=== PATIENT | male | born 1975 | race Two or more races ===

== ENCOUNTER 2024-05-23 08:00 | Day surgery (SDC) | payer MEDICAID, SELFPAY ==
[2024-05-22 15:15] VITALS: BMI 34.4
[2024-05-23] VITALS (9 sets, daily range): BP systolic 94–120; BP diastolic 27–83; PULSE 61–74; RESP 11–16; TEMP 36.6–36.7; O2SAT 93–97; BMI 34.4
[2024-05-23] MEDS: LIDOCAINE JELLY 2% (Urojet) 10 ML TUBE TOP (09:39)
[2024-05-23] MEDS: MIDAZOLAM INJ 1 MG/ML VIAL 2 ML (ASD USE ONLY) 2 MG IV (09:40)
[2024-05-23] MEDS: fentaNYL CIT INJ 50 mCg/ML AMP 2ML (ASD USE ONLY) IV (09:40)
[2024-05-23] MEDS: SIMETHICONE 40 MG/0.6 ML ORAL SYRINGE PO (09:40)
[2024-05-23] MEDS: bisacodyL 10 MG SUPP PR (10:48)
--- NOTE | 2024-05-23 10:48 | SUR.PHASEII ---
pt not able to pass flatus and suppository given.
--- NOTE | 2024-05-23 10:56 | SUR.PHASEII ---
Pt pass a large amount of flatus after suppository.
--- NOTE | 2024-05-23 10:57 | SUR.PHASEII ---
Pt reports feeling much better and abdomen is soft to touch
--- NOTE | 2024-05-23 11:11 | SUR.PHASEII ---
pt has mild but tolerable abdominal pain at d/c. pt and family were instructed that he has pass adequate flatus here and he should be walking when he gets home to pass more flatus. pt is encourage to go to the nearest ER of severe pain and n/v occurs while he is at home.
== END 2024-05-23 11:11 | disposition home or self-care (01) ==
PROVIDERS: PCP Internal Medicine Gastroenterology; Referring Provider Internal Medicine Gastroenterology; Visit Provider Internal Medicine Gastroenterology
PROC: 0DBE8ZX Excision of Large Intestine, Via Natural or Artificial Opening Endoscopic, Diagnostic (ICD-10-PCS; CPT 45380; principal; 2024-05-23 09:30)
DX: D12.3 Benign neoplasm of transverse colon (principal); K64.9 Unspecified hemorrhoids
CPT/HCPCS: 45380; A4649; J2250; J3010; A9270

== ENCOUNTER → 2024-07-09 | Outpatient (CLI) | payer MEDICAID, SELFPAY ==
--- NOTE | 2024-07-09 10:15 | XR_ITS ---
Exam: MRI knee without contrast, left complete Date and time of exam: July 09, 2024 1018 hours INDICATIONS: Medial knee pain osteoarthritis 3 months, instability knee swelling and pain Technique: Multiple axial, coronal, and sagittal sections on the knee have been obtained. T2-Weighted sagittal, fat-suppressed images, TR 3,500, TE 62, T2 weighted coronal fat-saturated images, TR 3,500, TE 62 Proton density sagittal sections, TR 1800, TE 31. T-1 weighted coronal images, TR 524, TE 13.0 Findings: Medial meniscus anterior horn intact. Medial meniscus, body oblique linear tear communicating inferior articular surface. Posterior horn medial meniscus horizontal linear tear communicating inferior articular surface near the inner margin. Lateral meniscus anterior horn is intact Lateral meniscus, body is intact Posterior horn lateral meniscus is intact Anterior cruciate ligament appears intact. Mild attenuation anterior cruciate ligament Posterior cruciate ligament appears intact. Knee effusion is small. Quadriceps and patellar tendons appear intact. There is no evidence of tendinosis. Inflammatory change or fracture of Hoffa's fat pad is not seen. Medial patellar facet demonstrates moderate thinning. Lateral patellar facet cartilage demonstrates moderate thinning. Trochlear cartilage demonstrates moderate thinning. Marrow signal adequate. Medial collateral ligament appears intact. No meniscocapsular separation is seen. Illiotibial band and fibular collateral ligament are intact. Biceps femoris tendons appear intact. Medial femoral condylar articular cartilage demonstrates moderate thinning. Lateral femoral condylar articular cartilage demonstratesmild thinning. Tibial plateau cartilage demonstrates moderate medial thinning. Impression: Tears of the body and posterior horn medial meniscus Cruciate ligaments are intact, mild attenuation anterior cruciate ligament
== END | disposition home or self-care (01) ==
PROVIDERS: PCP Nurse Practitioner Primary Care; Referring Provider Nurse Practitioner Primary Care; Visit Provider Nurse Practitioner Primary Care
DX: S83.242A Other tear of medial meniscus, current injury, left knee, initial encounter (principal); X58.XXXA Exposure to other specified factors, initial encounter; M25.862 Other specified joint disorders, left knee
CPT/HCPCS: 73721

== ENCOUNTER → 2024-07-17 | Outpatient (BNVA) | payer MEDICAID, SELFPAY | END | disposition home or self-care (01) | PROVIDERS: PCP Nurse Practitioner Primary Care; Referring Provider Nurse Practitioner Primary Care; Visit Provider Nurse Practitioner Primary Care | DX: S83.242A Other tear of medial meniscus, current injury, left knee, initial encounter (principal); D12.6 Benign neoplasm of colon, unspecified | CPT/HCPCS: 99212; G0463 ==

== ENCOUNTER 2024-09-06 08:40 | Day surgery (SDC) | payer MEDICAID, SELFPAY ==
[2024-08-15 08:27] VITALS: BMI 31.4
--- NOTE | 2024-09-05 11:30 | EKG_ITS ---
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
[2024-09-05 11:37] VITALS: BMI 35.1
[2024-09-05 13:17] LABS: Basophils # (Auto) 0.1 Thou/mm3 (0.0-0.2); Basophils % (Auto) 1 % (0-2.5); Eosinophils # (Auto) 0.2 Thou/mm3 (0.0-0.5); Eosinophils % (Auto) 3 % (0-10); Hematocrit 42.7 % (41.0-53.0); Hemoglobin 14.7 g/dL (13.5-16.0); Immature Granulocytes % (Auto) 1 % (0-0); Immature Granulocytes Auto 0.04 Thou/mm3 (0.00-0.00); Lymphocytes # (Auto) 2.3 Thou/mm3 (1.0-4.8); Lymphocytes % (Auto) 33 % (10-50); Mean Corpuscular HGB Conc 34.4 g/dl (31.0-37.0); Mean Corpuscular Hemoglobin 30.6 pg (25.0-35.0); Mean Corpuscular Volume 89 fL (80-100); Monocytes # (Auto) 0.7 Thou/mm3 (0.0-0.8); Monocytes % (Auto) 10 % (0-12); Neutrophils # (Auto) 3.6 Thou/mm3 (1.8-7.7); Neutrophils % (Auto) 51 % (37-80); Nucleated Red Blood Cell % 0 /100 WBC (0); Platelet Count 220 Thou/mm3 (140-440); RDW Standard Deviation 42.5 fL (35.1-43.9)
[2024-09-05 13:27] LABS: Anion Gap 7 (7-16); BUN/Creatinine Ratio 18 Ratio (12-20); Blood Urea Nitrogen 18 mg/dL (9-23); Calcium 9.5 mg/dL (8.3-10.6); Carbon Dioxide 26.4 mMol/L (20.0-31.0); Chloride 108 mMol/L (98-107); Estimated Creatinine Clearance 97.1 mL/min (>60); Glucose 100 mg/dL (74-106); Osmolality,Calculated 283 (275-295); Potassium 4.2 mMol/L (3.4-5.1); Sodium 141 mMol/L (136-145); eGFR > 60 See Note
[2024-09-05 13:32] LABS: Partial Thromboplastin Time 27.6 Seconds (22.0-36.0); Prothrombin Time 10.8 Seconds (9.0-12.2)
[2024-09-06] VITALS (8 sets, daily range): BP systolic 118–134; BP diastolic 79–101; PULSE 67–99; RESP 12–21; TEMP 36.1–36.7; O2SAT 94–97; BMI 35.1
[2024-09-06] MEDS: RINGERS LACTATED 1000 ML 1,000 ML 20 ML IV (09:34)
--- NOTE | 2024-09-06 10:48 | ESOP_ITS ---
Date of Procedure 09/06/24 Pre Op Diagnosis 1. Torn medial meniscus left knee joint 2 torn lateral meniscus 3 degenerative joint disease changes 4 synovitis with medial plica Post Op Diagnosis Same Procedure 1. Partial medial meniscectomy 2 partial lateral meniscectomy 3 chondroplasty 4 partial synovectomy including excision plica Findings Refer dictation Procedure Description The patient was given general endotracheal anesthesia. Once satisfactory anesthesia was achieved, tourniquet was placed on left upper thigh. Following that the part was thoroughly prepped and draped. After using Esmarch the tourniquet pressure was raised to 350 mmHg. A skin incision was made proximal to lateral tibial plateau and arthroscope was introduced in the usual fashion. Another a skin incision was made in suprapatellar pouch area and outlet was established. The findings were noted as below. In suprapatellar pouch area significant synovial tissue inflammation was present. Medial plica was present as well. 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 The anterior femoral condyle showed grade 3 chondromalacia. Soft tissue impingement was present. The patellar tracking was checked and found to be good. The medial compartment showed grade 3 chondromalacia for medial tibial plateau and medial femoral condyle. The medial meniscus showed degeneration and tear at the junction of the body and posterior horn of the medial meniscus. Another skin incision was made proximal to medial tibial plateau and a probe was introduced and findings were confirmed. The anterior cruciate ligament was intact. The anterior drawer test was performed and found to be good. The lateral compartment showed intact lateral femoral condyle and tibial plateau. Lateral meniscus showed degeneration of the body and anterior horn. A basket was introduced and torn part of the posterior horn and junction of the body and posterior horn was excised. A shaver was introduced and shaving of the posterior horn of medial meniscus was performed. f. Chondroplasty of the medial femoral condyle and medial tibial plateau was performed. The shaving of the body and anterior horn of lateral meniscus was done. The chondroplasty of the patella was performed. The soft tissue impingement was shaved off. A partial synovectomy including excision of plica was performed. Copious amount of irrigation was used to irrigate the knee joint. All the debris were removed. 3-0 Prolene was used to close the wound. About 20 mL of quarter percent Marcaine along with 10 mg of Duramorph was injected. Patient tolerated procedure well. Estimated blood loss was about 5 mL. Prognosis in this case is fair to good. Patient was taken to the recovery room in good condition. Anesthesia GETA Pathology / specimen None Estimated Blood Loss 1 Surgeon Chris Mejía MD Surgical Staff Operation Date: 09/06/24 11:00 Case Staff [employer]KER: Babak Huang
--- NOTE | 2024-09-06 10:49 | SUR.PHASEI ---
pt received from OR in recovery bay 4. pt obtunded, breathing unlabored on 10 nc, lma in place. v/s stable. pt dressing to left knee cdi. report received from Swetha LAUREN and Hernandez NO.
--- NOTE | 2024-09-06 11:13 | SUR.PHASEI ---
pt able to tolerate jello without difficulty swallowing or nausea/vomiting.
[2024-09-06] MEDS: ACETAMINOPHEN IVPB 1,000 MG/100 ML VIAL 250 MG IV (11:36)
[2024-09-06] MEDS: fentaNYL CIT INJ 50 mCg/ML AMP 2ML IV (11:36)
--- NOTE | 2024-09-06 11:43 | ESHP_ITS ---
RE: AMANDA SHAVER : 1975 DATE OF ADMISSION: 09/06/2024 HISTORY OF PRESENT ILLNESS: The patient came to my office on 09/05/2024 for detailed preoperative history and physical examination. The patient presented to me with a history of pain, swelling, clicking, and locking of the left knee joint. This is going on for more than a year. Last 6 months are extremely painful. There is a history of swelling. No history of giving way. The patient stated that pain, swelling, clicking, etc. came by itself. Intensity of pain is 10/10. It is affecting his quality of life and activity of daily living. PAST MEDICAL HISTORY: No history of diabetes mellitus, high blood pressure, asthma, seizure, chest pain, myocardial infarction. PAST SURGICAL HISTORY: Right knee arthroscopy done in the past. DRUG HISTORY: The patient takes only pain medication on and off. FAMILY HISTORY AND SOCIAL HISTORY: The patient admits to smoking and drinking. The patient is full-time employed, but presently disabled. PHYSICAL EXAMINATION: GENERAL: Normal-built person. VITAL SIGNS: Pulse 88 per minute. Blood pressure 132/76. NECK: Soft, supple. No mass felt. Trachea is centrally placed. CARDIOVASCULAR SYSTEM: First and second heart sounds normal. No murmur heard. RESPIRATORY SYSTEM: Bilateral vascular breath sounds. CHEST: Clear. ABDOMEN: Soft. No masses felt. Bowel sounds present. EXTREMITIES: Left knee examination revealed mild swelling. There is 1+ tenderness. Active range of motion 0-120 degrees of flexion. Julisa's test is positive. Drawer test and Dai test were negative. NEUROVASCULAR: It is intact. The patient walks with a limp. DIAGNOSTIC DATA: MRI scan confirmed torn meniscus with degenerative joint disease changes and synovitis with increased joint fluid. ASSESSMENT AND PLAN: Since the patient is symptomatic and is affecting his quality of life and activities of daily living, therefore, left knee arthroscopy was discussed and advised. Risks with anesthesia was explained and that includes, but not limited to reaction to anesthetic agents, cardiac arrest, rarely it might be fatal. Risks with outpatient includes infection and if that happens, the patient may need further surgical procedure. Other risks include delayed healing, wound dehiscence, etc. No guarantee is given regarding the outcome of the procedure and/or relief of symptoms. Indeed, if one finds grade 4 chondromalacia and even grade 3 chondromalacia, there is a possibility that the patient may continue having some degree of pain. Surgery is booked for 09/06/2024. Appropriate lab work was done. DT: 10:56:18 TT: 11:41:00 Ref: [id number] - TID: [id number]
--- NOTE | 2024-09-06 12:12 | SUR.PHASEII ---
pt awake and alert, breathing unlabored on room air. v/s stable. pt dressing to left knee cdi. pt able to transfer to wheelchair with steady gait. d/c instructions given with in room using aerial photograph interpreter Norma Malik, all questions answered.pt d/c via wheelchair with all belongings.
== END 2024-09-06 12:12 | disposition home or self-care (01) ==
PROVIDERS: PCP Nurse Practitioner Primary Care; Referring Provider Orthopaedic Surgery; Visit Provider Orthopaedic Surgery
PROC: (CPT 29870; principal; 2024-09-06 11:00)
DX: S83.242A Other tear of medial meniscus, current injury, left knee, initial encounter (principal); Z01.818 Encounter for other preprocedural examination; M65.90 Unspecified synovitis and tenosynovitis, unspecified site; S83.281A Other tear of lateral meniscus, current injury, right knee, initial encounter; M17.12 Unilateral primary osteoarthritis, left knee
CPT/HCPCS: 29875; 29880; 36415; 80048; 85025; 85610; 85730; 93005; A4217; A4649; J0131; J1100; J1885; J2250; J2274; J2405; J2704; J3010; J3490; J7120; A9270; J0665; J2270

== ENCOUNTER → 2024-09-11 | Outpatient (BNVA) | payer MEDICAID, SELFPAY | END | disposition home or self-care (01) | PROVIDERS: PCP Nurse Practitioner Primary Care; Referring Provider Nurse Practitioner Primary Care; Visit Provider Nurse Practitioner Primary Care | DX: J30.2 Other seasonal allergic rhinitis (principal) | CPT/HCPCS: 99213 ==

== ENCOUNTER → 2024-10-18 | Outpatient (BNVA) | payer MEDICAID, SELFPAY | END | disposition home or self-care (01) | PROVIDERS: PCP Nurse Practitioner Primary Care; Referring Provider Nurse Practitioner Primary Care; Visit Provider Nurse Practitioner Primary Care | DX: J00 Acute nasopharyngitis [common cold] (principal); J30.9 Allergic rhinitis, unspecified | CPT/HCPCS: 96372; 99213; J3301 ==

== ENCOUNTER → 2024-12-16 | Outpatient (BNVA) | payer MEDICAID, SELFPAY | END | disposition home or self-care (01) | PROVIDERS: PCP Nurse Practitioner Primary Care; Referring Provider Nurse Practitioner Primary Care; Visit Provider Nurse Practitioner Primary Care | DX: Z00.01 Encounter for general adult medical examination with abnormal findings (principal); Z23 Encounter for immunization; E66.9 Obesity, unspecified; Z68.30 Body mass index [BMI] 30.0-30.9, adult; Z13.89 Encounter for screening for other disorder; E78.2 Mixed hyperlipidemia; R73.03 Prediabetes; J30.2 Other seasonal allergic rhinitis | CPT/HCPCS: 90715; 96372; 99173; 99215 ==

== ENCOUNTER → 2025-01-06 | Outpatient (BNVA) | payer MEDICAID, SELFPAY | END | disposition home or self-care (01) | PROVIDERS: PCP Nurse Practitioner Primary Care; Referring Provider Nurse Practitioner Primary Care; Visit Provider Nurse Practitioner Primary Care | DX: R73.03 Prediabetes (principal); E78.2 Mixed hyperlipidemia; R10.13 Epigastric pain; Z71.2 Person consulting for explanation of examination or test findings | CPT/HCPCS: 99212; G0463 ==

== ENCOUNTER → 2025-03-12 | Outpatient (BNVA) | payer MEDICAID, SELFPAY | END | disposition home or self-care (01) | PROVIDERS: PCP Nurse Practitioner Primary Care; Referring Provider Nurse Practitioner Primary Care; Visit Provider Nurse Practitioner Primary Care | DX: L29.0 Pruritus ani (principal) | CPT/HCPCS: 96372; J3301 ==

== ENCOUNTER → 2025-06-17 | Outpatient (BNVA) | payer MEDICAID, SELFPAY | END | disposition home or self-care (01) | PROVIDERS: PCP Nurse Practitioner Family; Referring Provider Nurse Practitioner Family; Visit Provider Nurse Practitioner Family | DX: Z23 Encounter for immunization (principal) | CPT/HCPCS: 90471; 90686; 99213; G0008 ==